=== PATIENT | male | born 1990 ===

== ENCOUNTER → 2018-04-04 01:08 | Outpatient (REF) | payer OTHER, SELFPAY ==
[2018-04-04 02:33] LABS: Add Manual Diff / Slide Review NO; Basophils Percent Auto 0.1 % (0-2); Hematocrit 46.3 % (41-53); Hemoglobin 15.9 g/dL (13.5-17.5); Lymphocytes Percent Auto 19.8 % (25-40); Mean Corpuscular HGB Conc 34.4 % (30-36); Mean Corpuscular Hemoglobin 28.8 PG (26-34); Mean Corpuscular Volume 83.7 fL (80-100); Monocytes Percent Auto 8.7 % (3-14); Neutrophils Absolute Auto 3200 /uL (1500-7000); Neutrophils Percent Auto 69.4 % (50-75); Platelet Count 225 X10^3/uL (150-400); Red Blood Cell Count 5.53 X10^6/uL (4.5-5.9); Red Cell Distribution Width 14.3 % (11.6-14.8); White Blood Cell Count 4.7 X10^3/uL (4.5-11.0)
[2018-04-04 08:46] LABS: Alanine Aminotransferase 40 IU/L (21-72); Albumin 5.1 g/dL (3.5-5.0); Albumin Globulin Ratio 2.1 (1.0-2.8); Alkaline Phosphatase 69 U/L (38-126); Aspartate Aminotransferase 24 IU/L (17-59); BUN Creatinine Ratio 11.3 (6-22); Bilirubin Total 2.4 mg/dL (0.2-1.3); Blood Urea Nitrogen 9 mg/dL (9-20); Calcium 10.1 mg/dL (8.4-10.2); Carbon Dioxide 26 mmol/L (22-32); Chloride 103 mmol/L (98-107); Estimated Glomerular Filt Rate > 60.0 mL/min (>60); Globulin 2.4 g/dL (1.7-4.1); Glucose 91 mg/dL (70-100); HEMOLYSIS 17 (0-50); Potassium 4.7 mmol/L (3.4-5.1); Sodium 141 mmol/L (137-145); Total Protein 7.5 g/dL (6.3-8.2)
[2018-04-04 09:03] LABS: Luteinizing Hormone 2.79 mIU/mL
[2018-04-07 12:54] LABS: Z- Score (Male) 0.4 SD (-2.0 - +2.0)
[2018-04-07 19:37] LABS: Dehydroepiandrosterone Sulfate 295 mcg/dL (85-690)
[2018-04-07 23:01] LABS: Albumin 4.9 g/dL (3.6-5.1); Sex Hormone Binding Globulin 37 nmol/L (10-50); Testosterone, Bioavailable 200.7 ng/dL (110.0-575.0); Testosterone, Total 708 ng/dL (250-1100)
== END ==
LOC: LAB 01:08
PROVIDERS: Visit Provider Family Medicine
DX: S43.422A Sprain of left rotator cuff capsule, initial encounter (principal); Z13.89 Encounter for screening for other disorder; F52.21 Male erectile disorder; E29.1 Testicular hypofunction
CPT/HCPCS: 80053; 82040; 82627; 83002; 84270; 84305; 84403; 85025